=== PATIENT | female | born 1935 ===

== ENCOUNTER → 2020-12-09 | Outpatient (CLI) | payer OTHER | END | disposition home or self-care (01) | LOC: RAD 11:19 | DX: I10 Essential (primary) hypertension (principal) ==

== ENCOUNTER → 2021-03-27 | Outpatient (CLI) | payer OTHER | END | disposition home or self-care (01) | LOC: RAD 10:00 | DX: M54.5 Low back pain (principal) ==

== ENCOUNTER → 2021-04-07 | Outpatient (CLI) | payer OTHER | END | disposition home or self-care (01) | LOC: MRI 09:04 | DX: M54.5 Low back pain (principal) | CPT/HCPCS: 72148 ==

== ENCOUNTER → 2021-04-10 | Outpatient (CLI) | payer OTHER | END | disposition home or self-care (01) | LOC: SONOGRAMA 14:18 | DX: R07.89 Other chest pain (principal); E03.8 Other specified hypothyroidism; E04.8 Other specified nontoxic goiter ==

== ENCOUNTER 2022-04-14 08:14 | Outpatient (CLI) | payer OTHER | END 2022-04-14 08:21 | disposition home or self-care (01) | LOC: SONOGRAMA 08:14 | PROVIDERS: ATTEND General Practice | DX: R10.9 Unspecified abdominal pain (principal) ==

== ENCOUNTER 2022-04-29 10:47 | Emergency (ER) | payer OTHER ==
[~2022-04-29] VITALS: Ht 157.5 cm; Wt 63.5 kg
[2022-04-29] MEDS ORDERED: AMLODIPINE BESYL5 MG PO (11:08)
[2022-04-29] MEDS ORDERED: LEVOTHYROXINE50 MCG PO (11:08)
[2022-04-29] MEDS ORDERED: METFORMIN HCL500 M4 PO (11:08)
[2022-04-29] MEDS ORDERED: ATORVASTATIN CA10 MG PO (11:08)
[2022-04-29] MEDS ORDERED: CETIRIZINE HCL10 MG PO (11:09)
[2022-04-29] MEDS ORDERED: DICLOFENAC POTA50 MG PO (11:09)
[2022-04-29] MEDS ORDERED: SIMVASTATIN20 MG PO (11:09)
== END 2022-04-29 18:45 | disposition home or self-care (01) ==
LOC: ER 10:47
DX: R07.89 Other chest pain (principal); E11.9 Type 2 diabetes mellitus without complications; Z79.84 Long term (current) use of oral hypoglycemic drugs; Z20.822 Contact with and (suspected) exposure to COVID-19; F41.9 Anxiety disorder, unspecified